=== PATIENT | female | born 1965 | race Caucasian/White ===

== ENCOUNTER → 2019-02-10 | Outpatient (CLI) | payer MEDICARE, OTHER ==
--- NOTE | 2019-02-11 07:03 | CT ---
EXAMINATION TYPE: CT abdomen pelvis wo con DATE OF EXAM: 02/10/2019 HISTORY: LLQ pain, especially after eating. X5 months. History of stomach reconstruction. CT DLP: 1222 mGycm. Automated Exposure Control for Dose Reduction was Utilized. TECHNIQUE: CT scan of the abdomen and pelvis is performed with oral but without IV contrast. COMPARISON: NONE FINDINGS: Within the limitations of a non-contrast study, the following observations are made. LUNG BASES: No significant abnormality is appreciated. LIVER/GB: Cholecystectomy clips are identified. PANCREAS: No significant abnormality is seen. SPLEEN: No significant abnormality is seen. ADRENALS: Right adrenal gland has 5.3 x 4.7 cm fat density mass with thin rim soft tissue consistent with myelolipoma. KIDNEYS: Some cortical thinning is present bilaterally. No renal calculi or hydronephrosis is seen. BOWEL: The oral contrast does not reach colonic level making evaluation of distal bowel suboptimal. T here are surgical changes from gastric bypass procedure epigastric region. There is no suspicious sma ll or large bowel dilatation. Mild wall thickening at level of terminal ileum is identified. There is mild wall thickening involving the transverse and left colon. Findings presumed product of poor dist ention but a mild enterocolitis cannot be excluded. Correlate clinically. GENITAL ORGANS: Anteverted uterus. LYMPH NODES: No greater than 1cm abdominal or pelvic lymph nodes are appreciated. OSSEOUS STRUCTURES: Moderate disc space narrowing with vacuum disc phenomenon L5-S1 level is present. There is moderate multilevel spurring in the visualized thoracic spine. OTHER: Infrarenal IVC filter is present. Vertical scar overlying the midline of the lower anterior ab dominal wall and pelvis is noted. Impression: 1. No bowel obstruction. Possible mild colitis involving transverse and left colon, correlate clinica lly. Possible mild enteritis at level of terminal ileum. Correlate clinically. 2. Incidental 5.3 cm right adrenal myelolipoma.
== END ==
LOC: RADCTMAIN 15:05
PROVIDERS: ATTEND Surgery
DX: R10.32 Left lower quadrant pain (principal)
CPT/HCPCS: 36415; 74176; 82565; 84520

== ENCOUNTER 2019-02-24 11:14 | Day surgery (SDC) | payer MEDICARE, OTHER ==
[2019-02-18 14:43] VITALS: BMI 53.2
[~2019-02-24 11:14] MED LIST: LACTATED RINGERS 1,000 ML IV SCH
[2019-02-24 11:53] VITALS: RESP 16; TEMP 97.9
[2019-02-24 12:07] LABS: Glucose,Whole Blood 134 mg/dL (75-99)
[2019-02-24] MEDS ORDERED: LIDOCAINE 1% 20 ML VIAL (10MG/ML) FOR IV START INTRADERMA ONE (12:07)
[2019-02-24] MEDS ORDERED: PROPOFOL 10 MG/ML 20 ML VIAL IV ONE (12:54)
--- NOTE | 2019-02-24 13:01 | P.GSHP ---
History of Present Illness H&P Date: 02/24/19 Chief Complaint: GERD, abdominal pain This is a 53-year-old female with a safer EGD. Patient's complaints of abdominal pain for several months. She's had some mild GERD. She has a previous history of gastric bypass. This was performed in 2002. She's had a previous cholecystectomy. Past Medical History Past Medical History: Diabetes Mellitus, Eye Disorder, Fibromyalgia, Hypertension, Memory Impairment, Renal Disease, Sleep Apnea/CPAP/BIPAP Additional Past Medical History / Comment(s): Chronic left knee pain. Has been having abd pain since before . States kidneys functoining at 30% due to Diabetes and medications. No CPAP use. Recent issues with dizziness. "Polyarthritis." "Pressure behind eyes, seeing Neurologist. History of Any Multi-Drug Resistant Organisms: None Reported Past Surgical History: Bariatric Surgery, Cholecystectomy, Orthopedic Surgery, Tonsillectomy Additional Past Surgical History / Comment(s): Left knee surgery, left wrist carpal tunnel, 3 Sections, mutlipe hernia repairs, gastric bypass, reconstructive abd surgery. Past Anesthesia/Blood Transfusion Reactions: No Reported Reaction Additional Past Anesthesia/Blood Transfusion Reaction / Comment(s): "Mom had problems with anesthesia but unsure of what." Past Psychological History: Anxiety, Bipolar, Depression Smoking Status: Never smoker Past Alcohol Use History: Rare Past Drug Use History: Marijuana Additional Drug Use History / Comment(s): Uses marijuana once every few days. Aware not to use 24 hrs prior to procedure. - Past Family History Father Family Medical History: Cancer Additional Family Medical History / Comment(s): Skin cancer. Medications and Allergies Home Medications Medication Instructions Recorded Confirmed Type ARIPiprazole [Abilify] 10 mg PO HS 02/18/19 02/24/19 History DULoxetine HCL [Cymbalta] 60 mg PO BID 02/18/19 02/24/19 History Fluticasone Nasal [place] [Flonase 1 spray EA NOSTRIL DAILY 02/18/19 02/24/19 History Nasal [place]] Gabapentin [Neurontin] 300 mg PO TID 02/18/19 02/24/19 History Hydrochlorothiazide 12.5 mg PO QAM 02/18/19 02/24/19 History Hydrocodone/Acetaminophen [[place] 1 tab PO QID 02/18/19 02/24/19 History 10-325] Levothyroxine Sodium [Synthroid] 100 mcg PO QAM 02/18/19 02/24/19 History Lisinopril [Zestril] 10 mg PO QAM 02/18/19 02/24/19 History Meclizine [Antivert] 25 mg PO BID PRN 02/18/19 02/24/19 History Montelukast Sodium [Singulair] 10 mg PO DAILY 02/18/19 02/24/19 History Omeprazole 20 mg PO BID 02/18/19 02/24/19 History Trulicity. 68 units SQ HS 02/18/19 02/24/19 History lamoTRIgine [LaMICtal] 100 mg PO QAM 02/18/19 02/24/19 History lamoTRIgine [LaMICtal] 150 mg PO HS 02/18/19 02/24/19 History sitaGLIPtin PHOSPHATE [Januvia] 100 mg PO QAM 02/18/19 02/24/19 History traZODone HCL 200 mg PO HS 02/18/19 02/24/19 History Allergies Allergy/AdvReac Type Severity Reaction Status Date / Time morphine Allergy Unknown Verified 02/18/19 14:14 Surgical - Exam Vital Signs Temp Pulse Resp BP Pulse Ox 97.9 F 71 16 130/81 93 L 02/24/19 11:52 02/24/19 11:52 02/24/19 11:52 02/24/19 11:52 02/24/19 11:52 - General well developed, well nourished, no distress - Eyes PERRL - ENT normal pinna - Neck no masses - Respiratory normal expansion - Cardiovascular Rhythm: regular - Abdomen Abdomen: soft, non tender Results - Labs Abnormal Lab Results - Last 24 Hours (Table) 02/24/19 Range/Units 12:02 POC Glucose (mg/dL) 134 H (75-99) mg/dL Assessment and Plan Assessment: Abdominal pain pain GERD We'll perform EGD.
--- NOTE | 2019-02-24 13:09 | P.OP ---
Date of Procedure: 02/24/19 Preoperative Diagnosis: GERD Abdominal pain Postoperative Diagnosis: Mild esophagitis No evidence of gastrojejunostomy ulceration Procedure(s) Performed: EGD Anesthesia: MAC Surgeon: Junior Clark Pathology: other (Esophagus) Condition: stable Disposition: PACU Description of Procedure: The patient's placed on the endoscopy table in the lateral position. She received IV sedation. The gastric was placed oropharynx passed in the esophagus and into the stomach. The patient had a previous gastric bypass. The gastrojejunostomy was visualized. There is no obstruction or ulceration of the gastrojejunostomy the scope was then placed into the jejunum. There is no evidence of any obstruction. The scope was then brought back and the gastric pouch was mildly enlarged. The GE junction was at 40 cm. The distal esophagus appeared mildly inflamed. A biopsies performed. The proximal esophagus ap peared normal. Scope was withdrawn for patient.
[2019-02-24 13:23] LABS: Glucose,Whole Blood 125 mg/dL (75-99)
[2019-02-24 13:25] VITALS: BP 138/62; PULSE 66
== END 2019-02-24 13:45 | disposition home or self-care (01) ==
LOC: ORWHC2ENDO 11:14
PROVIDERS: ATTEND Surgery
DX: K21.0 Gastro-esophageal reflux disease with esophagitis (principal); F32.9 Major depressive disorder, single episode, unspecified; M79.7 Fibromyalgia; Z98.84 Bariatric surgery status; Z90.49 Acquired absence of other specified parts of digestive tract; G47.30 Sleep apnea, unspecified; Z99.89 Dependence on other enabling machines and devices; E11.22 Type 2 diabetes mellitus with diabetic chronic kidney disease; I12.9 Hypertensive chronic kidney disease with stage 1 through stage 4 chronic kidney disease, or unspecified chronic kidney disease; N18.9 Chronic kidney disease, unspecified; Z79.51 Long term (current) use of inhaled steroids; Z79.899 Other long term (current) drug therapy; Z79.890 Hormone replacement therapy
CPT/HCPCS: 81025; 88305; 43239; J2704

== ENCOUNTER → 2019-03-11 | Outpatient (CLI) | payer MEDICARE, OTHER ==
[2019-03-11 12:24] LABS: Basophils % (A) 0 %; Eosinophils % (A) 0 %; HCT 38.7 % (34.0-46.0); HGB 11.8 gm/dL (11.4-16.0); Hypochromasia Marked; Lymphocytes # (A) 1.5 k/uL (1.0-4.8); Lymphocytes % (A) 19 %; MCH 24.8 pg (25.0-35.0); MCHC 30.4 g/dL (31.0-37.0); MCV 81.5 fL (80.0-100.0); Mean Platelet Volume 6.9; Monocytes # (A) 0.3 k/uL (0-1.0); Monocytes % (A) 3 %; Neutrophils # (A) 5.6 k/uL (1.3-7.7); Neutrophils % (A) 75 %; Platelet Count 278 k/uL (150-450); RBC 4.75 m/uL (3.80-5.40); RDW 15.5 % (11.5-15.5); WBC 7.5 k/uL (3.8-10.6)
[2019-03-11 19:28] LABS: T4, Free (Free Thyroxine) 1.4 ng/dL (0.80-1.80)
[2019-03-11 19:33] LABS: Vitamin D 25 Hydroxy 9.4 ng/mL (30.0-100.0)
[2019-03-11 19:34] LABS: Albumin/Globulin Ratio 1.82 (1.60-3.17); Anion Gap 6.1 mmol/L (4.00-12.00); Carbon Dioxide 23.9 mmol/L (21.6-31.8); Globulin 2.2 g/dL (1.6-3.3); Potassium 5.2 mmol/L (3.5-5.5); Total Bilirubin 0.3 mg/dL (0.2-1.2); Total Protein 6.2 g/dL (6.2-8.2)
== END | disposition home or self-care (01) ==
LOC: LABWHC1 11:14
PROVIDERS: ATTEND Nurse Practitioner Acute Care
DX: I49.9 Cardiac arrhythmia, unspecified (principal); E55.9 Vitamin D deficiency, unspecified; R41.3 Other amnesia; M13.0 Polyarthritis, unspecified
CPT/HCPCS: 36415; 80053; 82306; 82607; 84207; 84439; 84443; 84481; 85025; 86431; 93005